=== PATIENT | male | born 1975 | race Caucasian/White ===

== ENCOUNTER → 2018-04-19 | Outpatient (CLI) | payer BC ==
--- NOTE | 2018-04-19 20:03 | CONS ---
CONSULTATION DATE OF SERVICE: 04/19/2018 A 22-year-old gentleman has been evaluated in the sleep center for possible obstructive sleep apnea-hypopnea syndrome by referral from primary care physician and for duty evaluation. HISTORY OF PRESENT ILLNESS/SLEEP-WAKE EVALUATION: Patient usual sleep schedule on working days from 10 p.m. to 5:30 a.m. and on weekends from around 11-12 midnight until 7 a.m. Usually no problems with falling asleep. No TV in bedroom. According to his , he snores. Sometimes he wakes up from sleep with nocturia. [place] Sleepiness Scale is 2. PAST MEDICAL HISTORY: Positive for hypertension and gout. MEDICATIONS: Toprol-XL, hydrochlorothiazide, allopurinol. PAST SURGICAL HISTORY: None. SOCIAL HISTORY: He has some alcohol on occasion. Negative for smoking. Alcohol consumption rarely. FAMILY HISTORY: Hypertension. REVIEW OF SYSTEMS: Basically negative except sometimes wakes up from sleep with nocturia. PHYSICAL EXAM: gentleman without distress. BP 126/87, HR 68, RR 16, height 6 foot 2-1/2, weight 354.0, BMI 44.8, temperature 98.1, oxygen saturation room air 98%. Oropharynx moderately to extremely low position of soft palate, wide pillars. Wide neck 19-1/4 inches in circumference. ABDOMEN: Obese. Soft and nontender. Bowel sounds are present. No organomegaly appreciated. EXTREMITIES No clubbing or cyanosis. PHOTO MASK PATTERN GENERATOR Awake, alert, and oriented X3. Cranial nerves 2 to 7 intact. There is no fasciculation or atrophy. noted. No focal deficits observed. IMPRESSION: 1. Snoring, low position of soft palate, wide pillars, wide neck 19-1/4 inches in circumference. 2. Obstructive sleep apnea-hypopnea syndrome. 3. Obesity, BMI 44.8. 4. Hypertension. 5. History of gout. PLAN: PLAN 1. Polysomnography for evaluation of patient's breathing during sleep. 2. CPAP/BiPAP titration if sleep study confirms obstructive sleep apnea-hypopnea syndrome. 3. Preferable position during sleep on the side. 4. No driving if patient feels any sleepiness. 5. I will see patient for follow up visit to explain results of testing and following plan. Clifford Ellis MD, PhD, FAASM Diplomat of [employer] [place] Machine Tender of [facility] [place] MMLAURITAL / MARELYN: [id number] /
== END | disposition home or self-care (01) ==
LOC: SLEEP 15:59
PROVIDERS: ATTEND Internal Medicine
DX: G47.33 Obstructive sleep apnea (adult) (pediatric) (principal); I10 Essential (primary) hypertension; E66.9 Obesity, unspecified; Z68.41 Body mass index [BMI] 40.0-44.9, adult; Z79.899 Other long term (current) drug therapy
CPT/HCPCS: 99211

== ENCOUNTER → 2018-06-14 | Outpatient (CLI) | payer BC ==
--- NOTE | 2018-06-14 18:29 | PN ---
PROGRESS NOTE DATE OF SERVICE: 06/14/2018 This patient is a 42-year-old gentleman followed in Sleep Center came in to discuss results of his diagnostic polysomnogram. I discussed results of his diagnostic polysomnogram with the patient and family in detail. Sleep study showed apnea-hypopnea index 4.6 with lowest oxygen level 89%, which is by today's criteria in normal range. Apnea-hypopnea index increased in REM sleep to 15, but again following today's criteria that is not considered to be an indication for necessary treatment. Mild snoring was documented during the sleep study. The patient does not complain of any sleepiness. [place] Sleepiness Scale is 1. PHYSICAL EXAMINATION: GENERAL: A pleasant patient in no distress. VITAL SIGNS: BP 149/59, HR 55, RR 18, temperature 98.1, oxygen saturation at room air 97% HEENT: PERRLA, EOMI. Evaluation of oropharynx showed tongue protrudes midline. Low position of soft palate. NECK: Supple. No JVD. Thyroid is not palpable. LUNGS: Clear to percussion and to auscultation. Good air exchange. No wheezing or rhonchi. HEART: S1, S2 regular. No murmurs, gallops or rubs. ABDOMEN: Obese. EXTREMITIES: No clubbing or cyanosis. SHUCKER: Awake, alert, and oriented X3. Cranial nerves 2 to 7 intact. There is no fasciculation or atrophy. noted. No focal deficits observed. IMPRESSION: 1. No significant respiratory abnormalities have been documented during the sleep study. Normal oxygenation during sleep. 2. Obesity. 3. Hypertension. 4. History of gout. PLAN: 1. Sleep hygiene with regular time in bed for at least 8 hours. 2. Losing weight. 3. Preferable position during sleep on the side. 4. Precautions related to driving. No driving if feeling any sleepiness. Patient promised to follow recommendation. He is aware of civil and criminal liability for unsafe driving. Thank you for allowing me to participate in the management of your patient. Sincerely, Clifford Ellis MD, PhD, FAASM Diplomat of [place] [place] [employer] Site Coordinator of [facility] [place] MMODL / IJN: [id number] /
== END | disposition home or self-care (01) ==
LOC: SLEEP 16:18
PROVIDERS: ATTEND Internal Medicine
DX: R06.83 Snoring (principal); E66.9 Obesity, unspecified; I10 Essential (primary) hypertension; M10.9 Gout, unspecified

== ENCOUNTER 2020-11-10 13:25 | Emergency (ER) | payer BC, OTHER ==
[2020-11-10 15:11] VITALS: BP 144/83; PULSE 74; RESP 20; TEMP 98.3
--- NOTE | 2020-11-10 15:11 | ED ---
General Adult HPI <Mark Curtis - Last Filed: 11/10/20 15:10> <Butch Valencia - Last Filed: 11/10/20 16:05> - General Stated complaint: L foot injury - History of Present Illness Initial comments: 45-year-old male presents emergency Department with a chief complaint of left foot injury. Patient reports the incident occurred earlier today while he was at work. Patient reports he stepped on a crate and his foot went through the crate. He reports most of the pain is located at the fifth metatarsal. Denies any ecchymosis but does report mild swelling in the region. Denies any numbness or tingling. Pain is exacerbated with weightbearing but alleviated at rest. (Mark Curtis) - Related Data Home Medications Medication Instructions Recorded Confirmed Metoprolol Succinate [Toprol XL] 50 mg PO DAILY 05/15/14 05/15/14 allopurinoL [Zyloprim] 300 mg PO DAILY 05/15/14 05/15/14 hydroCHLOROthiazide [Hydrodiuril] 50 mg PO DAILY 05/15/14 05/15/14 lisinopriL 40 mg PO DAILY 05/15/14 05/15/14 Allergies Allergy/AdvReac Type Severity Reaction Status Date / Time No Known Allergies Allergy Verified 11/10/20 15:11 Review of Systems ROS Other: All systems not noted in ROS Statement are negative. <Mark Curtis - Last Filed: 11/10/20 15:10> ROS Other: All systems not noted in ROS Statement are negative. <Butch Valencia - Last Filed: 11/10/20 16:05> ROS Statement: Those systems with pertinent positive or pertinent negative responses have been documented in the HPI. Past Medical History Past Medical History: Hypertension Additional Past Medical History / Comment(s): gout History of Any Multi-Drug Resistant Organisms: None Reported Additional Past Surgical History / Comment(s): laproscopy Past Psychological History: No Psychological Hx Reported Past Alcohol Use History: None Reported Past Drug Use History: None Reported <Mark Curtis - Last Filed: 11/10/20 15:10> General Exam Extremities exam: Present: normal inspection, full ROM, tenderness (Fifth metatarsal tenderness), normal capillary refill, other (Palpable DP and PT bilaterally). Absent: pedal edema, joint swelling, calf tenderness <Mark Curtis - Last Filed: 11/10/20 15:10> Course Vital Signs 11/10/20 15:08 Temperature 98.3 F Pulse Rate 74 Respiratory 20 Rate Blood Pressure 144/83 O2 Sat by Pulse 98 Oximetry Procedures - Orthopedic Splinting/Casting Injury #1 Side: left Lower Extremity Injury Location: ankle Lower Extremity Immobilizer: posterior splint, Ronald wrap, synthetic pre-padded splint Other Orthopedic Equipment: crutches <Butch Valencia - Last Filed: 11/10/20 16:05> Medical Decision Making - Radiology Data Radiology results: report reviewed, image reviewed <Butch Valencia - Last Filed: 11/10/20 16:05> - Medical Decision Making 45-year-old male that presents emergency department complaining of left foot pain after stepping to a pallet at work while trying Motrin well. Left foot x-ray ordered. 59 g of Toradol ordered and a Tylenol 3 starter pack sent for pain management home. Case discussed with Dr. Son patient to discharge home with follow-up to orthopedics in the next several days. (Butch Valencia) - Radiology Data Left foot x-ray: Nondisplaced transverse fracture base of the fifth metatarsal. (Butch Valencia) Disposition <Mark Curtis - Last Filed: 11/10/20 15:10> Is patient prescribed a controlled substance at d/c from ED?: No Time of Disposition: 16:04 <Butch Valencia - Last Filed: 11/10/20 16:05> Clinical Impression: Nondisplaced fracture of fifth left metatarsal bone Disposition: HOME SELF-CARE Condition: Stable Instructions (If sedation given, give patient instructions): Foot Fracture in Adults (ED) Additional Instructions: Please return to the Emergency Department if symptoms worsen or any other concerns. Follow-up with orthopedics the next 2-5 days. Take uteu-eze-xuaquco anti-inflammatories for pain and nausea. Take prescriptions as prescribed. Use crutches as prescribed. Avoid any unnecessary weightbearing. Referrals: Stephen Dugan MD [Primary Care Provider] - 1-2 days Gali Conrad DO [Doctor of Osteopathic Medicine] - 1-2 days
--- NOTE | 2020-11-10 15:32 | XR ---
EXAMINATION TYPE: XR foot complete LT DATE OF EXAM: 11/10/2020 COMPARISON: None HISTORY: Fifth metatarsal tenderness TECHNIQUE: 3 view left foot FINDINGS: There is a transverse fracture at the base of the fifth metatarsal. No additional fractures are evident. Joint spaces are preserved. Soft tissues appear normal. Plantar and Achilles tendon erin caneal heel spurs are present. IMPRESSION: 1. Nondisplaced transverse fracture base of the fifth metatarsal.
[2020-11-10] MEDS ORDERED: KETOROLAC 15 MG/ML 1 ML VIAL IM STA (16:02)
[2020-11-10] MEDS ORDERED: ACET/COD 300 MG/30 MG STARTER PACK 6 TAB BTL PO STA (16:02)
== END 2020-11-10 16:46 | disposition home or self-care (01) ==
LOC: EC 13:25
DX: S92.355A Nondisplaced fracture of fifth metatarsal bone, left foot, initial encounter for closed fracture (principal); I10 Essential (primary) hypertension; M10.9 Gout, unspecified; Z79.899 Other long term (current) drug therapy; W22.8XXA Striking against or struck by other objects, initial encounter; Y93.A3 Activity, aerobic and step exercise; Y92.69 Other specified industrial and construction area as the place of occurrence of the external cause; Y99.0 Civilian activity done for income or pay
CPT/HCPCS: 73630; 96372; 29515; 99283; J1885

== ENCOUNTER → 2021-10-23 | Outpatient (CLI) | payer BC ==
[2021-10-23 17:15] LABS: Basophils # (A) 0.03 X 10*3/uL (0.00-0.10); Basophils % (A) 0.5 %; Eosinophils # (A) 0.13 X 10*3/uL (0.04-0.35); Eosinophils % (A) 2.4 %; HCT 45.9 % (39.6-50.0); HGB 14.9 g/dL (13.0-17.0); Immature Grans, Automated 0.4 %; Lymphocytes # (A) 1.68 X 10*3/uL (0.90-5.00); Lymphocytes % (A) 30.5 %; MCHC 32.5 g/dL (32.0-37.0); MCV 86.1 fL (80.0-97.0); Mean Platelet Volume 10.5 fL (9.5-12.2); Monocytes % (A) 7.3 %; NRBC Per 100 WBC 0 /100 WBCS (0.0-0.0); Neutrophils # (A) 3.25 X 10*3/uL (1.80-7.70); Neutrophils % (A) 58.9 %; Platelet Count 187 X 10*3/uL (140-440); RBC 5.33 X 10*6/uL (4.40-5.60); RDW 12.5 % (11.5-14.5); WBC 5.51 X 10*3/uL (4.50-10.00)
[2021-10-23 17:43] LABS: African American GFR (CKD) 103.8 (60.0-200.0); BUN/Creat Ratio 16.65 Ratio (12.00-20.00); Blood Urea Nitrogen 16.5 mg/dL (9.0-27.0); Calcium 9.2 mg/dL (8.7-10.3); Carbon Dioxide 23.2 mmol/L (20.0-27.5); Chloride 100 mmol/L (96-109); Chol/HDL Ratio 5.03 Ratio; Glucose 105 mg/dL (70-110); LDL Cholesterol,Calculated 89.2 mg/dL (0.0-131.0); Non-African American GFR(CKD) 89.6 (60.0-200.0); Potassium 4.1 mmol/L (3.5-5.5); Sodium 138 mmol/L (135-145); Uric Acid 6.3 mg/dL (3.7-8.7)
== END | disposition home or self-care (01) ==
LOC: LABWHC1 09:07
PROVIDERS: ATTEND Student in an Organized Health Care Education/Training Program
DX: Z00.00 Encounter for general adult medical examination without abnormal findings (principal); M10.9 Gout, unspecified; E66.9 Obesity, unspecified
CPT/HCPCS: 36415; 80048; 80061; 82306; 83036; 84550; 85025

== ENCOUNTER → 2022-07-04 | Outpatient (CLI) | payer OTHER ==
[2022-07-04 15:06] LABS: ALT 14 U/L (10-49); AST 25 U/L (14-35); African American GFR (CKD) 89.5 (60.0-200.0); Albumin 4.4 g/dL (3.8-4.9); Albumin/Globulin Ratio 2.23 (1.60-3.17); Alkaline Phosphatase 71 U/L (41-126); BUN/Creat Ratio 15.09 Ratio (12.00-20.00); Blood Urea Nitrogen 16.9 mg/dL (9.0-27.0); Calcium 9.3 mg/dL (8.7-10.3); Carbon Dioxide 26.9 mmol/L (20.0-27.5); Chloride 100 mmol/L (96-109); Chol/HDL Ratio 4.93 Ratio; Glucose 123 mg/dL (70-110); LDL Cholesterol,Calculated 68.4 mg/dL (0.0-131.0); Non-African American GFR(CKD) 77.3 (60.0-200.0); Potassium 3.9 mmol/L (3.5-5.5); Sodium 138 mmol/L (135-145); Total Protein 6.4 g/dL (6.2-8.2); Uric Acid 5.8 mg/dL (3.7-8.7)
[2022-07-04 15:07] LABS: HCT 44.2 % (39.6-50.0); HGB 15.1 g/dL (13.0-17.0); MCH 28.8 pg (27.0-32.0); MCHC 34.2 g/dL (32.0-37.0); MCV 84.4 fL (80.0-97.0); Mean Platelet Volume 10.9 fL (9.5-12.2); NRBC Per 100 WBC 0 /100 WBCS (0.0-0.0); Platelet Count 145 X 10*3/uL (140-440); RBC 5.24 X 10*6/uL (4.40-5.60); RDW 12.4 % (11.5-14.5); WBC 6.27 X 10*3/uL (4.50-10.00)
== END | disposition home or self-care (01) ==
LOC: LABWHC1 09:21
PROVIDERS: ATTEND Family Medicine
DX: Z00.00 Encounter for general adult medical examination without abnormal findings (principal); I10 Essential (primary) hypertension; M10.9 Gout, unspecified
CPT/HCPCS: 36415; 80053; 80061; 82306; 84153; 84550; 85027